=== PATIENT | female | born 1945 | race Caucasian/White ===

== ENCOUNTER 2018-03-14 09:46 | Emergency (ER) | payer MEDICARE, BC ==
--- NOTE | 2018-03-14 10:28 | EDM.PDOC ---
ED HPI GENERAL MEDICAL PROBLEM - General Stated Complaint: TROUBLE SWALLOWING, Time Seen by Provider: 03/14/18 10:20 Source of Information: Reports: Patient History Limitations: Reports: No Limitations - History of Present Illness INITIAL COMMENTS - FREE TEXT/NARRATIVE: This 73 yo female patient reports to the ED today due to difficulties swallowing. The patient reports her symptoms started this morning while she was eating a role. The patient ended up throwing up the bite prior to symptom resolution. The patient reports she is currently on Doxycycline and a Medrol Dose Pack due to bronchitis (the patient has 1 pill left for tonight and 1 pill for tomorrow morning. The patient reports no sensation of swelling of her tongue or mouth. The patient denies any rash. The patient reports she has not had a similar problem in the past. Onset: Today Duration: Minutes: Location: Reports: Neck Quality: Reports: Other Severity: Moderate Improves with: Reports: None Worsens with: Reports: None Associated Symptoms: Reports: No Other Symptoms - Related Data Allergies Allergy/AdvReac Type Severity Reaction Status Date / Time atorvastatin calcium Allergy Leg Cramps Verified 12/21/16 17:14 [From Lipitor] losartan [Losartan] Allergy Cannot Verified 12/21/16 17:14 Remember penicillin Allergy Swelling Verified 12/21/16 17:14 Home Meds: Home Meds Albuterol/Ipratropium [Combivent Respimat] 1 puff IH QID 06/07/15 [History] Brinzolamide [Azopt 1% Ophth Susp] 1 drop EYEBOTH BID 06/07/15 [History] Diazepam 5 mg PO BEDTIME 06/07/15 [History] Latanoprost 1 drop EYEBOTH BEDTIME 06/07/15 [History] Levothyroxine 25 mcg PO DAILY 06/07/15 [History] Levothyroxine 200 mcg PO DAILY 06/07/15 [History] OXcarbazepine [Oxcarbazepine] 600 mg PO BID 06/07/15 [History] QUEtiapine Fumarate [Quetiapine Fumarate] 200 mg PO BEDTIME 06/07/15 [History] Simvastatin 80 mg PO BEDTIME 06/07/15 [History] Trifluoperazine 5 mg PO BEDTIME 06/07/15 [History] Pyridostigmine [place] 30 mg PO Q8H 12/04/16 [History] Budesonide [Pulmicort] 0.5 mg NEB BIDRT 12/05/16 [History] Formoterol [Perforomist] 20 mcg NEB BIDRT 12/05/16 [History] Citalopram Hydrobromide [Celexa] 10 mg PO BEDTIME 12/14/16 [History] Loratadine [Claritin] 5 mg PO DAILY PRN 12/14/16 [History] Multivitamin [Daily Multiple Vitamin] 1 tab PO DAILY 12/14/16 [History] amLODIPine [Norvasc] 10 mg PO DAILY 12/14/16 [History] Aspirin [Halfprin] 81 mg PO DAILY 12/17/16 [History] Past Medical History Other HEENT History: wears glasses, has hearing aides Cardiovascular History: Reports: High Cholesterol, Hypertension Respiratory History: Reports: COPD Gastrointestinal History: Reports: GI Bleed, Other (See Below) Other Gastrointestinal History: dark stools Other Genitourinary History: has frequency 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 Musculoskeletal History: Reports: Arthritis Neurological History: Reports: Other (See Below) Other Neuro History: myasthenia gravis Psychiatric History: Reports: Anxiety, Bipolar, Depression Endocrine/Metabolic History: Reports: Hypothyroidism Hematologic History: Reports: None Immunologic History: Reports: None Oncologic (Cancer) History: Reports: None Dermatologic History: Reports: None - Infectious Disease History Infectious Disease History: Reports: Chicken Pox, Measles, Mumps, Shingles Social & Family History - Family History Family Medical History: Noncontributory - Tobacco Use Smoking Status *Q: Former Smoker Years of Tobacco use: 35 Packs/Tins Daily: 1 Used Tobacco, but Quit: Yes Month/Year Tobacco Last Used: 1998 Second Hand Smoke Exposure: No - Caffeine Use Caffeine Use: Reports: Coffee - Recreational Drug Use Recreational Drug Use: No - Living Situation & Occupation Living situation: Reports: Alone Occupation: Retired ED ROS ENT - Review of Systems Review Of Systems: ROS reveals no pertinent complaints other than HPI. ED EXAM, ENT - Physical Exam Exam: See Below General Appearance: Alert, WD/WN, Mild Distress Eye Exam: Bilateral Eye: EOMI, Normal Inspection, PERRL Ears: Normal External Exam, Normal Canal, Hearing Grossly Normal, Normal TMs Nose: Normal Inspection, Normal Mucousa, No Blood Mouth/Throat: Normal Gums, Normal Lips, Normal Teeth, Pharyngeal Erythema Head: Atraumatic, Normocephalic Neck: Normal Inspection, Supple, Non-Tender, Full Range of Motion Respiratory/Chest: No Respiratory Distress, Lungs Clear, Normal Breath Sounds, No Accessory Muscle Use, Chest Non-Tender Cardiovascular: Normal Peripheral Pulses, Regular Rate, Rhythm, No Edema, No Gallop, No JVD, No Murmur, No Rub GI/Abdominal: Normal Bowel Sounds, Soft, Non-Tender, No Organomegaly, No Distention, No Abnormal Bruit, No Mass (Female) Exam: Deferred Rectal (Female) Exam: Deferred Back: Normal Inspection, Full Range of Motion Extremities: Normal Inspection, Normal Range of Motion, Non-Tender, No Pedal Edema, Normal Capillary Refill Neurological: Alert, Oriented, CN II-XII Intact, Normal Cognition, Normal Gait, Normal Reflexes, No Motor/Sensory Deficits Psychiatric: Normal Affect, Normal Mood Skin: Warm, Dry, Intact, Normal Color, No Rash Lymphatic: No Adenopathy Course - Orders/Labs/Meds Orders: Active Orders 24 hr Category Date Time Status CULTURE STREP A CONFIRMATION [RM] Stat Lab 03/14/18 10:52 Results STREP SCRN A RAPID W CULT CONF [] Stat Lab 03/14/18 10:20 Ordered Departure - Departure Time of Disposition: 11:13 Disposition: Home, Self-Care 01 Condition: Fair Clinical Impression: Difficulty swallowing Qualifiers: Dysphagia type: oropharyngeal phase Qualified Code(s): R13.12 - Dysphagia, oropharyngeal phase - Discharge Information Instructions: Dysphagia Care Plan Goals: The patient was advised of the examination and lab results during the visit. The patient was encouraged to stop taking the prednisone. If the patient has any additional symptoms or concerns, the patient should follow-up with her primary care facility or return to the emergency department. - My Orders Last 24 Hours: My Active Orders 03/14/18 10:20 STREP SCRN A RAPID W CULT CONF [RM] Stat 03/14/18 10:52 CULTURE STREP A CONFIRMATION [] Stat - Assessment/Plan Last 24 Hours: My Active Orders 03/14/18 10:20 STREP SCRN A RAPID W CULT CONF [RM] Stat 03/14/18 10:52 CULTURE STREP A CONFIRMATION [] Stat
[2018-03-14 12:06] VITALS: BP 179/78
== END 2018-03-14 11:29 | disposition home or self-care (01) ==
LOC: DL.ED 09:46 → EEVIPCON 09:46 → DL.ED 11:29
DX: R13.12 Dysphagia, oropharyngeal phase (principal); I10 Essential (primary) hypertension; J44.9 Chronic obstructive pulmonary disease, unspecified; E03.9 Hypothyroidism, unspecified; Z88.8 Allergy status to other drugs, medicaments and biological substances; Z88.0 Allergy status to penicillin; Z79.899 Other long term (current) drug therapy; Z87.891 Personal history of nicotine dependence
CPT/HCPCS: 87081; 87430; 99283

== ENCOUNTER 2018-03-15 20:21 | Emergency (ER) | payer MEDICARE, BC ==
[2018-03-15 22:30] LABS: CHLORIDE,CL 94 mmol/L (101-111); SODIUM,NA 135 mmol/L (135-145)
[2018-03-15] MEDS ORDERED: Albuterol/Ipratropium 3.0-0.5 MG/3 ML Neb Soln NEB ONE (22:40)
--- NOTE | 2018-03-15 22:41 | EDM.PDOC ---
ED HPI GENERAL MEDICAL PROBLEM - General Chief Complaint: Respiratory Problem Stated Complaint: [id number] TROUBLE BREATHING Time Seen by Provider: 03/15/18 20:30 Source of Information: Reports: Patient, Family History Limitations: Reports: No Limitations - History of Present Illness INITIAL COMMENTS - FREE TEXT/NARRATIVE: ED with c/o of difficulty breathing, felt more SOB and unable to do nebulizer as usual. Has hx or recent bronchitis, is on last day of Doxycycline. Was seen in ED after choking on roll. Hx of myasthenia gravis. Productive cough at times. Family note sppech thicker past 2 weeks. Patient admits increasing difficulty swallowing and more episodes of choking. Has had thickened liquids in past though currently not thickening. - Related Data Allergies Allergy/AdvReac Type Severity Reaction Status Date / Time atorvastatin calcium Allergy Leg Cramps Verified 03/15/18 20:28 [From Lipitor] losartan [Losartan] Allergy Cannot Verified 03/15/18 20:28 Remember penicillin Allergy Swelling Verified 03/15/18 20:28 Home Meds: Home Meds Albuterol/Ipratropium [Combivent Respimat] 1 puff IH QID 06/07/15 [History] Brinzolamide [Azopt 1% Ophth Susp] 1 drop EYEBOTH BID 06/07/15 [History] Diazepam 5 mg PO BEDTIME 06/07/15 [History] Latanoprost 1 drop EYEBOTH BEDTIME 06/07/15 [History] Levothyroxine 200 mcg PO DAILY 06/07/15 [History] OXcarbazepine [Oxcarbazepine] 600 mg PO BID 06/07/15 [History] QUEtiapine Fumarate [Quetiapine Fumarate] 200 mg PO BEDTIME 06/07/15 [History] Simvastatin 80 mg PO BEDTIME 06/07/15 [History] Trifluoperazine 5 mg PO BEDTIME 06/07/15 [History] Pyridostigmine [place] 30 mg PO Q8H 12/04/16 [History] Budesonide [Pulmicort] 0.5 mg NEB BIDRT 12/05/16 [History] Formoterol [Perforomist] 20 mcg NEB BIDRT 12/05/16 [History] Citalopram Hydrobromide [Celexa] 10 mg PO BEDTIME 12/14/16 [History] Loratadine [Claritin] 5 mg PO DAILY PRN 12/14/16 [History] Multivitamin [Daily Multiple Vitamin] 1 tab PO DAILY 12/14/16 [History] amLODIPine [Norvasc] 10 mg PO DAILY 12/14/16 [History] Aspirin [Halfprin] 81 mg PO DAILY 12/17/16 [History] Brimonidine [Alphagan 0.2% Ophth Soln] 1 drop EYEBOTH BID 03/14/18 [History] methylPREDNISolone [Methylprednisolone] 1 tab PO ASDIRECTED 03/14/18 [History] Past Medical History HEENT History: Reports: Other (See Below) Other HEENT History: wears glasses, has hearing aides Cardiovascular History: Reports: High Cholesterol, Hypertension Respiratory History: Reports: COPD Other Respiratory History: Myasthenia Gravis Gastrointestinal History: Reports: GI Bleed, Other (See Below) Other Gastrointestinal History: dark stools Genitourinary History: Reports: Other (See Below) Other Genitourinary History: has frequency 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 Musculoskeletal History: Reports: Arthritis Neurological History: Reports: Other (See Below) Other Neuro History: myasthenia gravis Psychiatric History: Reports: Anxiety, Bipolar, Depression Endocrine/Metabolic History: Reports: Hypothyroidism Hematologic History: Reports: None Immunologic History: Reports: None Oncologic (Cancer) History: Reports: None Dermatologic History: Reports: None - Infectious Disease History Infectious Disease History: Reports: Chicken Pox, Measles, Mumps, Shingles Social & Family History - Family History Family Medical History: Noncontributory - Tobacco Use Smoking Status *Q: Never Smoker Years of Tobacco use: 35 Packs/Tins Daily: 1 Used Tobacco, but Quit: Yes Month/Year Tobacco Last Used: 1998 Second Hand Smoke Exposure: No - Caffeine Use Caffeine Use: Reports: Coffee - Recreational Drug Use Recreational Drug Use: No - Living Situation & Occupation Living situation: Reports: Alone Occupation: Retired ED ROS GENERAL - Review of Systems Review Of Systems: See Below Constitutional: Reports: Chills, Weakness HEENT: Reports: Glasses Respiratory: Reports: Shortness of Breath, Wheezing, Cough, Sputum (thick white/ yellow) Cardiovascular: Reports: No Symptoms GI/Abdominal: Reports: No Symptoms : Reports: No Symptoms Musculoskeletal: Reports: Other Skin: Reports: No Symptoms Neurological: Reports: No Symptoms, Pre-Existing Deficit ED EXAM, GENERAL - Physical Exam Exam: See Below Exam Limited By: No Limitations General Appearance: Alert, Anxious, Mild Distress Eye Exam: Bilateral Eye: EOMI Ears: Normal External Exam, Normal TMs Nose: Normal Inspection Throat/Mouth: Dysphagia, Other (thick white coating to tongue) Head: Atraumatic, Normocephalic Neck: Normal Inspection. No: Lymphadenopathy (L) Respiratory/Chest: No Respiratory Distress, Rhonchi (bilateral bases), Wheezing , Other (productive cough thick white/yellow phlegm) Cardiovascular: Normal Peripheral Pulses, Regular Rate, Rhythm GI/Abdominal: Normal Bowel Sounds, Soft Extremities: Normal Inspection, Normal Range of Motion Neurological: Alert, Oriented, Normal Cognition. No: Normal Gait (with supervision) Psychiatric: Normal Affect Skin Exam: Warm, Dry, Intact, Ecchymosis Course - Vital Signs Last Recorded V/S: Last Vital Signs Temp 100.4 F 03/15/18 23:21 Pulse 96 03/15/18 23:21 Resp 32 H 03/15/18 23:21 BP 177/83 H 03/15/18 23:21 Pulse Ox 98 03/15/18 23:21 - Orders/Labs/Meds Labs: Laboratory Tests 03/15/18 03/15/18 03/15/18 Range/Units 22:03 22:03 22:03 WBC 16.8 H (5.0-10.0) 10^3/uL RBC 4.62 (4.2-5.4) 10^6/uL Hgb 14.4 D (12.0-16.0) g/dL Hct 44.9 (37.0-47.0) % MCV 97.2 (80-100) fL MCH 31.2 (27.0-34.0) pg MCHC 32.1 L (33.0-35.0) g/dL Plt Count 254 D (150-450) 10^3/uL Neut % (Auto) 87.5 H (42.2-75.2) % Lymph % (Auto) 5.1 L (20.5-50.1) % [place] % (Auto) 7.2 (2-8) % Eos % (Auto) 0.1 L (1.0-3.0) % Baso % (Auto) 0.1 (0.0-1.0) % Sodium 135 (135-145) mmol/L Potassium 4.3 (3.6-5.0) mmol/L Chloride 94 L (101-111) mmol/L Carbon Dioxide 32.0 H (21.0-31.0) mmol/L Anion Gap 13.3 BUN 16 (7-18) mg/dL Creatinine 0.6 (0.6-1.3) mg/dL Est Cr Clr Drug Dosing 77.01 mL/min Estimated GFR (MDRD) > 60 BUN/Creatinine Ratio 26.66 Glucose 124 H (74-105) mg/dL Lactic Acid 1.2 (0.5-2.2) mmol/L Calcium 9.5 (8.4-10.2) mg/dl Magnesium 1.6 L (1.8-2.5) mg/dL Total Bilirubin 0.5 (0.2-1.0) mg/dL AST 29 (10-42) IU/L ALT 28 (10-60) IU/L Alkaline Phosphatase 83 (42-121) IU/L Troponin I < 0.02 (0.00-0.02) ng/ml Total Protein 7.5 (6.7-8.2) g/dl Albumin 4.3 (3.2-5.5) g/dl Globulin 3.2 Albumin/Globulin Ratio 1.34 Urine Color (YELLOW) Urine Appearance (CLEAR) Urine pH (5.0-9.0) Ur Specific [place] (1.005-1.030) Urine Protein (NEGATIVE) Urine Glucose (UA) (NEGATIVE) Urine Ketones (NEGATIVE) Urine Occult Blood (NEGATIVE) Urine Nitrite (NEGATIVE) Urine Bilirubin (NEGATIVE) Urine Urobilinogen (0.2-1.0) mg/dL Ur Leukocyte Esterase (NEGATIVE) Urine RBC /HPF Urine WBC (0-5/HPF) /HPF Ur Epithelial Cells /HPF Amorphous Sediment (0/HPF) /HPF Urine Bacteria (0-FEW/HPF) /HPF 03/15/18 Range/Units 22:43 WBC (5.0-10.0) 10^3/uL RBC (4.2-5.4) 10^6/uL Hgb (12.0-16.0) g/dL Hct (37.0-47.0) % MCV (80-100) fL MCH (27.0-34.0) pg MCHC (33.0-35.0) g/dL Plt Count (150-450) 10^3/uL Neut % (Auto) (42.2-75.2) % Lymph % (Auto) (20.5-50.1) % [place] % (Auto) (2-8) % Eos % (Auto) (1.0-3.0) % Baso % (Auto) (0.0-1.0) % Sodium (135-145) mmol/L Potassium (3.6-5.0) mmol/L Chloride (101-111) mmol/L Carbon Dioxide (21.0-31.0) mmol/L Anion Gap BUN (7-18) mg/dL Creatinine (0.6-1.3) mg/dL Est Cr Clr Drug Dosing mL/min Estimated GFR (MDRD) BUN/Creatinine Ratio Glucose (74-105) mg/dL Lactic Acid (0.5-2.2) mmol/L Calcium (8.4-10.2) mg/dl Magnesium (1.8-2.5) mg/dL Total Bilirubin (0.2-1.0) mg/dL AST (10-42) IU/L ALT (10-60) IU/L Alkaline Phosphatase (42-121) IU/L Troponin I (0.00-0.02) ng/ml Total Protein (6.7-8.2) g/dl Albumin (3.2-5.5) g/dl Globulin Albumin/Globulin Ratio Urine Color Yellow (YELLOW) Urine Appearance Slightly cloudy (CLEAR) Urine pH 8.5 (5.0-9.0) Ur Specific [place] 1.020 (1.005-1.030) Urine Protein 30 H (NEGATIVE) Urine Glucose (UA) Negative (NEGATIVE) Urine Ketones Negative (NEGATIVE) Urine Occult Blood Negative (NEGATIVE) Urine Nitrite Negative (NEGATIVE) Urine Bilirubin Negative (NEGATIVE) Urine Urobilinogen 1.0 (0.2-1.0) mg/dL Ur Leukocyte Esterase Negative (NEGATIVE) Urine RBC 0-5 /HPF Urine WBC 0-5 (0-5/HPF) /HPF Ur Epithelial Cells Rare /HPF Amorphous Sediment Few (0/HPF) /HPF Urine Bacteria Few (0-FEW/HPF) /HPF Meds: Medications Discontinued Medications Generic Name Dose Route Start Last Admin Trade Name Freq PRN Reason Stop Dose Admin Albuterol/Ipratropium 3 ml 03/15/18 22:40 03/15/18 22:48 Duoneb 3.0-0.5 Mg/3 Ml NEB 03/15/18 22:41 3 ml ONETIME ONE Administration Aztreonam 1 gm 03/15/18 23:36 03/15/18 23:47 Azactam IVPUSH 03/15/18 23:37 1 gm ONETIME ONE Administration - Re-Assessments/Exams Free Text/Narrative Re-Assessment/Exam: 03/15/18 23:37 Aspiration pneumonia, hx myesthenia gravis, limiting antibiotic choice. Has received azactam in past and tolerated. 03/15/18 23:39Dr Sylvester accepting of patient in tx to alt 03/18/18 21:45 Departure - Departure Time of Disposition: 23:55 Disposition: DC/Tfer to Acute Hospital 02 Condition: Fair Clinical Impression: Myasthenia gravis RML pneumonia Qualifiers: Pneumonia type: aspiration pneumonia Aspiration pneumonia type: unspecified Qualified Code(s): J69.0 - Pneumonitis due to inhalation of food and vomit COPD (chronic obstructive pulmonary disease) Qualifiers: COPD type: unspecified COPD Qualified Code(s): J44.9 - Chronic obstructive pulmonary disease, unspecified - Discharge Information Referrals: PCP,Unobtain [Primary Care Provider] - Forms: ED Department Discharge
[2018-03-15 23:22] VITALS: BP 177/83
== END 2018-03-15 23:59 ==
LOC: DL.ED 20:21
DX: J69.0 Pneumonitis due to inhalation of food and vomit (principal); J44.9 Chronic obstructive pulmonary disease, unspecified; G70.00 Myasthenia gravis without (acute) exacerbation; E78.00 Pure hypercholesterolemia, unspecified; I10 Essential (primary) hypertension; E03.9 Hypothyroidism, unspecified; Z88.8 Allergy status to other drugs, medicaments and biological substances; Z88.0 Allergy status to penicillin; Z79.899 Other long term (current) drug therapy; Z79.82 Long term (current) use of aspirin; Z87.891 Personal history of nicotine dependence
CPT/HCPCS: 36415; 71046; 80053; 81001; 83605; 83735; 84484; 85025; 87040; 87070; 87077; 87186; 87205; 96374; 99285; S0073

== ENCOUNTER 2018-03-21 12:38 | Inpatient (IN) | payer MEDICARE, BC ==
[2018-03-21] MEDS ORDERED: Docusate Sodium 100 MG Cap PO PRN (15:35)
[2018-03-21] MEDS ORDERED: Calcium Carbonate 500 MG Tab.Chew PO PRN (15:35)
[2018-03-21] MEDS ORDERED: guaiFENesin 100 MG/5 ML Soln 5 ML UD Cup PO PRN (15:35)
[2018-03-21] MEDS ORDERED: Ondansetron 4 MG/2 ML SDV IVPUSH PRN (15:35)
[2018-03-21] MEDS ORDERED: Aluminum Hydroxide/Magnesium Hydroxide/Simethicone Susp 30 ML Cup PO PRN (15:35)
[2018-03-21] MEDS ORDERED: Bisacodyl 5 MG Tab PO PRN (15:35)
[2018-03-21] MEDS ORDERED: IPRATROPIUM INH PRN (15:43)
[2018-03-21] MEDS ORDERED: Loratadine 10 MG Tab PO PRN (15:43)
[2018-03-21] MEDS ORDERED: ALBUTEROL INH PRN (15:43)
--- NOTE | 2018-03-21 15:56 | PCM.HP ---
H&P History of Present Illness - General Date of Service: 03/21/18 Admit Problem/Dx: Admission Diagnosis/Problem Admission Diagnosis/Problem Pneumonia Source of Information: Patient History Limitations: Reports: No Limitations - History of Present Illness Onset of Symptoms: Reports: Unknown/Unsure Duration of Symptoms: Reports: Week(s): Location: Reports: Generalized Quality: Reports: Ache Severity: Mild Improves with: Reports: Rest Worsens with: Reports: Movement Context: Reports: Activity/Exercise Associated Symptoms: Reports: Cough, Shortness of Breath - Related Data Allergies/Adverse Reactions: Allergies Allergy/AdvReac Type Severity Reaction Status Date / Time atorvastatin calcium Allergy Leg Cramps Verified 03/21/18 13:50 [From Lipitor] losartan [Losartan] Allergy Cannot Verified 03/21/18 13:50 Remember penicillin Allergy Swelling Verified 03/21/18 13:50 Home Medications: Home Meds Albuterol/Ipratropium [Combivent Respimat] 1 puff IH QID PRN 06/07/15 [History] Brinzolamide [Azopt 1% Ophth Susp] 1 drop EYEBOTH BID 06/07/15 [History] Diazepam 5 mg PO BEDTIME 06/07/15 [History] Latanoprost 1 drop EYEBOTH BEDTIME 06/07/15 [History] Levothyroxine 200 mcg PO DAILY 06/07/15 [History] OXcarbazepine [Oxcarbazepine] 600 mg PO BID 06/07/15 [History] QUEtiapine Fumarate [Quetiapine Fumarate] 200 mg PO BEDTIME 06/07/15 [History] Simvastatin 80 mg PO BEDTIME 06/07/15 [History] Trifluoperazine 5 mg PO BEDTIME 06/07/15 [History] Pyridostigmine [place] 90 mg PO TID 12/04/16 [History] Budesonide [Pulmicort] 0.5 mg NEB BIDRT 12/05/16 [History] Formoterol [Perforomist] 20 mcg NEB BIDRT 12/05/16 [History] Citalopram Hydrobromide [Celexa] 10 mg PO BEDTIME 12/14/16 [History] Loratadine [Claritin] 5 mg PO DAILY PRN 12/14/16 [History] Multivitamin [Daily Multiple Vitamin] 1 tab PO DAILY 12/14/16 [History] amLODIPine [Norvasc] 10 mg PO DAILY 12/14/16 [History] Aspirin [Halfprin] 81 mg PO DAILY 12/17/16 [History] Brimonidine [Alphagan 0.2% Ophth Soln] 1 drop EYEBOTH BID 03/14/18 [History] Diazepam [Valium] 2.5 mg PO BID 03/21/18 [History] Omeprazole 20 mg PO DAILY 03/21/18 [History] Prednisone [IJD: Prednisone] 10 mg PO DAILY 03/21/18 [History] Past Medical History HEENT History: Reports: Other (See Below) Other HEENT History: wears glasses, has hearing aides Cardiovascular History: Reports: High Cholesterol, Hypertension Respiratory History: Reports: COPD Other Respiratory History: Myasthenia Gravis Gastrointestinal History: Reports: GERD, GI Bleed, Other (See Below) Other Gastrointestinal History: dark stools Genitourinary History: Reports: Other (See Below) Other Genitourinary History: has frequency 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: Musculoskeletal History: Reports: Arthritis Neurological History: Reports: None Other Neuro History: myasthenia gravis Psychiatric History: Reports: Anxiety, Bipolar, Depression Endocrine/Metabolic History: Reports: Hypothyroidism, Other (See Below) Other Endocrine/Metabolic History: myasthenia gravis Hematologic History: Reports: None Immunologic History: Reports: None Oncologic (Cancer) History: Reports: None Dermatologic History: Reports: None - Infectious Disease History Infectious Disease History: Reports: Shingles - Past Surgical History HEENT Surgical History: Reports: None Cardiovascular Surgical History: Reports: None Respiratory Surgical History: Reports: None GI Surgical History: Reports: None Female Surgical History: Reports: Tubal Ligation Endocrine Surgical History: Reports: None Neurological Surgical History: Reports: None Musculoskeletal Surgical History: Reports: None Oncologic Surgical History: Reports: None Dermatological Surgical History: Reports: None Social & Family History - Family History Family Medical History: Noncontributory - Tobacco Use Smoking Status *Q: Former Smoker Years of Tobacco use: 30 Packs/Tins Daily: 1 Used Tobacco, but Quit: Yes Month/Year Tobacco Last Used: 12/16/1998 Second Hand Smoke Exposure: No - Caffeine Use Caffeine Use: Reports: None - Recreational Drug Use Recreational Drug Use: No - Living Situation & Occupation Living situation: Reports: Alone Occupation: Retired H&P Review of Systems - Review of Systems: Review Of Systems: See Below General: Reports: No Symptoms HEENT: Reports: No Symptoms Pulmonary: Reports: Shortness of Breath, Cough Cardiovascular: Reports: No Symptoms Gastrointestinal: Reports: No Symptoms Genitourinary: Reports: No Symptoms Musculoskeletal: Reports: No Symptoms Skin: Reports: No Symptoms Psychiatric: Reports: No Symptoms Neurological: Reports: No Symptoms Hematologic/Lymphatic: Reports: No Symptoms Immunologic: Reports: No Symptoms Exam - Exam Exam: See Below - Vital Signs Weight: 161 lb - Exam Quality Assessment: Supplemental Oxygen, DVT Prophylaxis General: Alert, Oriented, Cooperative, Mild Distress HEENT: PERRLA, Hearing Intact, Mucosa Moist & [place], Nares Patent, Normal Nasal Septum, Posterior Pharynx Clear, Conjunctiva Clear, EOMI, EACs Clear, TMs Clear Neck: Supple, Trachea Midline, 2 Lungs: Clear to Auscultation, Normal Respiratory Effort Cardiovascular: Regular Rate, Regular Rhythm GI/Abdominal Exam: Normal Bowel Sounds, Soft, Non-Tender, No Organomegaly, No Distention, No Abnormal Bruit, No Mass, Pelvis Stable (Female) Exam: Normal External Exam, Normal Speculum Exam, Normal Bimanual Exam Rectal (Female) Exam: Deferred Back Exam: Normal Inspection, Full Range of Motion Extremities: Pedal Edema Skin: Warm Neurological: Cranial Nerves Intact, Reflexes Equal Bilateral Neuro Extensive - Mental Status: Alert, Oriented x3, Normal Mood/Affect, Normal Cognition Neuro Extensive - Motor, Sensory, Reflexes: CN II-XII Intact, Normal Gait, Normal Reflexes Psychiatric: Alert - Problem List (1) Acute respiratory failure SNOMED Code(s): 22289451 ICD Code: J96.00 - ACUTE RESPIRATORY FAILURE, UNSP W HYPOXIA OR HYPERCAPNIA Status: Acute Current Visit: No (2) COPD (chronic obstructive pulmonary disease) SNOMED Code(s): 66337462 ICD Code: J44.9 - CHRONIC OBSTRUCTIVE PULMONARY DISEASE, UNSPECIFIED Status : Acute Current Visit: No (3) Myasthenia gravis SNOMED Code(s): 07522067 ICD Code: G70.00 - MYASTHENIA GRAVIS WITHOUT (ACUTE) EXACERBATION Status: Acute Current Visit: No (4) Pneumonia SNOMED Code(s): 000375066 ICD Code: J18.9 - PNEUMONIA, UNSPECIFIED ORGANISM Status: Acute Current Visit: No Qualifiers: (5) RML pneumonia SNOMED Code(s): 369704627 ICD Code: J18.1 - LOBAR PNEUMONIA, UNSPECIFIED ORGANISM Status: Acute Current Visit: No Problem List Initiated/Reviewed/Updated: Yes Orders Last 24hrs: Active Orders 24 hr Category Date Time Status Patient Status [ADT] Routine ADT 03/21/18 15:35 Ordered Ambulate [RC] PER UNIT ROUTINE Care 03/21/18 15:38 Ordered Dietary Supplements [RC] BIDAC Care 03/21/18 15:35 Ordered Intake and Output [RC] ASDIRECTED Care 03/21/18 15:35 Ordered Oxygen Therapy [RC] PRN Care 03/21/18 15:35 Ordered Up With Assistance [RC] ASDIRECTED Care 03/21/18 15:35 Ordered VTE/DVT Education [RC] PER UNIT ROUTINE Care 03/21/18 15:35 Ordered Vital Signs [RC] PER UNIT ROUTINE Care 03/21/18 15:35 Ordered Acetaminophen [Tylenol] Med 03/21/18 15:35 Ordered 650 mg PO Q4H PRN Albuterol/Ipratropium [Combivent Respimat] Med 03/21/18 15:43 Ordered 1 puff IH QID PRN Alum Hydrox/Mag Hydrox/Simeth [Mag-Al Plus] Med 03/21/18 15:35 Ordered 30 ml PO Q4H PRN Aspirin [Halfprin] Med 03/22/18 09:00 Ordered 81 mg PO DAILY Bisacodyl [Dulcolax] Med 03/21/18 15:35 Ordered 5 mg PO DAILY PRN Brimonidine [Alphagan 0.2% Ophth Soln] Med 03/21/18 21:00 Ordered 1 drop EYEBOTH BID Brinzolamide [Azopt 1% Ophth Susp] Med 03/21/18 21:00 Ordered 1 drop EYEBOTH BID Budesonide [Pulmicort] Med 03/21/18 18:00 Ordered 0.5 mg NEB BIDRT Calcium Carbonate [Tums] Med 03/21/18 15:35 Ordered 500 mg PO Q2HR PRN Citalopram Hydrobromide [Celexa] Med 03/21/18 21:00 Ordered 10 mg PO BEDTIME Diazepam [Valium] Med 03/21/18 21:00 Ordered 5 mg PO BEDTIME Docusate Sodium [Colace] Med 03/21/18 15:35 Ordered 100 mg PO BID PRN Formoterol [Perforomist] Med 03/21/18 18:00 Ordered 20 mcg NEB BIDRT Heparin Sodium Med 03/21/18 15:45 Ordered 5,000 units SUBCUT Q12H Latanoprost [Xalatan 0.005% Ophth Soln] Med 03/21/18 21:00 Ordered 1 drop EYEBOTH BEDTIME Levothyroxine Med 03/22/18 09:00 Ordered 200 mcg PO DAILY Loratadine [Claritin] Med 03/21/18 15:43 Ordered 5 mg PO DAILY PRN Meropenem [Merrem] 500 mg Med 03/21/18 22:00 Ordered Sodium Chloride 0.9% [Normal Saline] 100 ml IV Q8HR Multivitamin [Daily Multiple Vitamin] Med 03/22/18 09:00 Ordered 1 tab PO DAILY OXcarbazepine [Oxcarbazepine] Med 03/21/18 21:00 Ordered 600 mg PO BID Omeprazole Med 03/22/18 09:00 Ordered 20 mg PO DAILY Ondansetron [Zofran ODT] Med 03/21/18 15:35 Ordered 4 mg PO Q4H PRN Ondansetron [Zofran] Med 03/21/18 15:35 Ordered 4 mg IVPUSH Q4H PRN Pyridostigmine [place] Med 03/21/18 21:00 Ordered 90 mg PO TID QUEtiapine Fumarate [Quetiapine Fumarate] Med 03/21/18 21:00 Ordered 200 mg PO BEDTIME Simvastatin [Simvastatin] Med 03/21/18 21:00 Ordered 80 mg PO BEDTIME Trifluoperazine Med 03/21/18 21:00 Ordered 5 mg PO BEDTIME amLODIPine [Norvasc] Med 03/22/18 09:00 Ordered 10 mg PO DAILY guaiFENesin [Robitussin] Med 03/21/18 15:35 Ordered 100 mg PO Q4H PRN predniSONE Med 03/22/18 09:00 Ordered 10 mg PO DAILY Antiembolic Hose [OM.PC] Per Unit Routine Oth 03/21/18 15:39 Ordered Resuscitation Status Routine Resus Stat 03/21/18 15:35 Ordered Medication Orders Acetaminophen (Tylenol) 650 mg PO Q4H PRN PRN Reason: Pain (Mild 1-3)/fever Al Hydroxide/Mg Hydroxide (Mag-Al Plus) 30 ml PO Q4H PRN PRN Reason: Nausea Aspirin (Halfprin) 81 mg PO DAILY [facility] Bisacodyl (Dulcolax) 5 mg PO DAILY PRN PRN Reason: Constipation Brinzolamide (Azopt 1% Ophth Susp) ml EYEBOTH BID [facility] Budesonide (Pulmicort) 0.5 mg NEB BIDRT [facility] Calcium Carbonate/Glycine (Tums) 500 mg PO Q2HR PRN PRN Reason: Indigestion Diazepam (Valium.) 5 mg PO BEDTIME [facility] Docusate Sodium (Colace) 100 mg PO BID PRN PRN Reason: Constipation Guaifenesin (Robitussin) 100 mg PO Q4H PRN PRN Reason: Cough Heparin Sodium (Porcine) (Heparin Sodium) 5,000 units SUBCUT Q12H [facility] Meropenem 500 mg/ Sodium (Chloride) 100 mls @ 200 mls/hr IV Q8HR [facility] Latanoprost (Xalatan 0.005% Ophth Soln) ml EYEBOTH BEDTIME [facility] Non-Formulary Medication (Albuterol/Ipratropium [Combivent Respimat]) 1 puff IH QID PRN PRN Reason: Shortness of Breath Non-Formulary Medication (Amlodipine [Norvasc]) 10 mg PO DAILY [facility] Non-Formulary Medication (Brimonidine [Alphagan 0.2% Ophth Soln]) 1 drop EYEBOTH BID [facility] Non-Formulary Medication (Citalopram Hydrobromide [Celexa]) 10 mg PO BEDTIME [facility] Non-Formulary Medication (Formoterol [Perforomist]) 20 mcg NEB BIDRT [facility] Non-Formulary Medication (Levothyroxine) 200 mcg PO DAILY [facility] Non-Formulary Medication (Loratadine [Claritin]) 5 mg PO DAILY PRN PRN Reason: Allergies Non-Formulary Medication (Multivitamin [Daily Multiple Vitamin]) 1 tab PO DAILY [facility] Non-Formulary Medication (Oxcarbazepine [Oxcarbazepine]) 600 mg PO BID [facility] Non-Formulary Medication (Pyridostigmine [place]) 90 mg PO TID [facility] Non-Formulary Medication (Quetiapine Fumarate [Quetiapine Fumarate]) 200 mg PO BEDTIME [facility] Non-Formulary Medication (Simvastatin [Simvastatin]) 80 mg PO BEDTIME [place] Non-Formulary Medication (Trifluoperazine) 5 mg PO BEDTIME [facility] Omeprazole (Omeprazole) 20 mg PO DAILY [facility] Ondansetron HCl (Zofran Odt) 4 mg PO Q4H PRN PRN Reason: nausea, able to take PO Ondansetron HCl (Zofran) 4 mg IVPUSH Q4H PRN PRN Reason: Nausea/Vomiting Prednisone (Prednisone) 10 mg PO DAILY [facility] Assessment/Plan Comment:: ASSESSMENT: 1. Pneumonia. CXR showed gram-negative pneumonia. Sputum culture is growing [id number] and Pseudomonas Chest x-ray showed right lower lobe infiltrate. Will continue IV Meropenem to complete for 7 days 2. Myasthenia gravis with exacerbation On Mestinon 90 mg 3 times daily Continue prednisone 20 mg daily and gradually taper off Follows with Dr Washington 3. Possible chronic obstructive pulmonary disease (COPD) Continue home meds 4. Bipolar disorder, Continue current medication. 5. Hypertension. Fairly controlled continue current care 6. Hypothyroidism, on synthroid 8. Generalized anxiety disorder. Continue curent care 9.Chronic hypoxemic respiratory failure on home oxygen 2L with activity 10.Generalized weakness PT/OT
[2018-03-21] MEDS: Budesonide 0.5 MG/2 ML Neb Susp NEB SCH (18:43)
[2018-03-21] MEDS: FORMOTEROL 20 MCG NEB SCH (20:06)
[2018-03-21] MEDS: BRIMONIDINE 0.15% EYEBOTH SCH (20:43)
[2018-03-21] MEDS: Heparin Sodium 5,000 Units/ML Vial SUBCUT SCH (20:45)
[2018-03-21] MEDS: Citalopram 20 MG Tab PO SCH (20:45)
[2018-03-21] MEDS: PYRIDOSTIGMINE BROMIDE 60 MG PO SCH (20:46)
[2018-03-21] MEDS: TRIFLUOPERAZINE 5 MG PO SCH (20:47)
[2018-03-21] MEDS: OXcarbazepine 300 MG Tab PO SCH (20:48)
[2018-03-21] MEDS: Latanoprost 0.005% Ophth Soln 2.5 ML Bottle EYEBOTH SCH (20:49)
[2018-03-21] MEDS: Simvastatin 40 MG Tab PO SCH (20:50)
[2018-03-21] MEDS: QUEtiapine 100 MG Tab PO SCH (22:33)
[2018-03-21] MEDS: Diazepam 5 MG Tab PO SCH (22:33)
[2018-03-21] MEDS: Meropenem 500 MG in Sodium Chloride 0.9% 100 ML IV SCH (22:34)
[2018-03-22] MEDS: Meropenem 500 MG in Sodium Chloride 0.9% 100 ML IV SCH ×3 (05:50→21:35)
[2018-03-22] MEDS: Omeprazole 20 MG Cap.CR PO SCH (05:50)
[2018-03-22] MEDS: Budesonide 0.5 MG/2 ML Neb Susp NEB SCH ×2 (07:18→18:28)
[2018-03-22] MEDS: FORMOTEROL 20 MCG NEB SCH ×2 (07:18→18:25)
[2018-03-22] MEDS: OXcarbazepine 300 MG Tab PO SCH ×2 (08:35→20:53)
[2018-03-22] MEDS: amLODIPine 5 MG Tab PO SCH (08:35)
[2018-03-22] MEDS: predniSONE 10 MG Tab PO SCH (08:36)
[2018-03-22] MEDS: Multivitamins,Therapeutic Tab PO SCH (08:36)
[2018-03-22] MEDS: Levothyroxine 100 MCG Tab PO SCH (08:36)
[2018-03-22] MEDS: PYRIDOSTIGMINE BROMIDE 60 MG PO SCH ×3 (08:36→20:47)
[2018-03-22] MEDS: Aspirin 81 MG Tab.EC PO SCH (08:36)
[2018-03-22] MEDS: Heparin Sodium 5,000 Units/ML Vial SUBCUT SCH ×2 (08:36→20:51)
[2018-03-22] MEDS: BRIMONIDINE 0.15% EYEBOTH SCH ×2 (08:38→20:46)
[2018-03-22] MEDS: Acetaminophen 325 MG Tab PO PRN (10:34)
[2018-03-22] MEDS: Sodium Chloride 0.9% 10 ML Syringe FLUSH PRN (14:24)
[2018-03-22] MEDS: Latanoprost 0.005% Ophth Soln 2.5 ML Bottle EYEBOTH SCH (20:45)
[2018-03-22] MEDS: TRIFLUOPERAZINE 5 MG PO SCH (20:48)
[2018-03-22] MEDS: QUEtiapine 100 MG Tab PO SCH (20:52)
[2018-03-22] MEDS: Citalopram 20 MG Tab PO SCH (20:52)
[2018-03-22] MEDS: Diazepam 5 MG Tab PO SCH (20:53)
[2018-03-22] MEDS: Simvastatin 40 MG Tab PO SCH (20:53)
[2018-03-23] MEDS: Acetaminophen 325 MG Tab PO PRN (03:07)
[2018-03-23] MEDS: Omeprazole 20 MG Cap.CR PO SCH (05:18)
[2018-03-23] MEDS: Meropenem 500 MG in Sodium Chloride 0.9% 100 ML IV SCH ×3 (05:18→22:07)
[2018-03-23] MEDS: Budesonide 0.5 MG/2 ML Neb Susp NEB SCH ×2 (07:24→18:04)
[2018-03-23] MEDS: FORMOTEROL 20 MCG NEB SCH ×2 (07:25→18:05)
[2018-03-23] MEDS: predniSONE 10 MG Tab PO SCH (08:46)
[2018-03-23] MEDS: amLODIPine 5 MG Tab PO SCH (08:46)
[2018-03-23] MEDS: OXcarbazepine 300 MG Tab PO SCH ×2 (08:49→21:14)
[2018-03-23] MEDS: Aspirin 81 MG Tab.EC PO SCH (08:50)
[2018-03-23] MEDS: Heparin Sodium 5,000 Units/ML Vial SUBCUT SCH ×2 (08:50→21:09)
[2018-03-23] MEDS: Multivitamins,Therapeutic Tab PO SCH (08:50)
[2018-03-23] MEDS: PYRIDOSTIGMINE BROMIDE 60 MG PO SCH ×6 (08:52→17:34)
[2018-03-23] MEDS: BRIMONIDINE 0.15% EYEBOTH SCH ×2 (08:54→21:24)
[2018-03-23] MEDS: Levothyroxine 100 MCG Tab PO SCH (09:14)
[2018-03-23] MEDS: Sodium Chloride 0.9% 10 ML Syringe FLUSH PRN ×2 (14:20→22:09)
[2018-03-23] MEDS: QUEtiapine 100 MG Tab PO SCH (21:12)
[2018-03-23] MEDS: Simvastatin 40 MG Tab PO SCH (21:13)
[2018-03-23] MEDS: Diazepam 5 MG Tab PO SCH (21:14)
[2018-03-23] MEDS: TRIFLUOPERAZINE 5 MG PO SCH (21:15)
[2018-03-23] MEDS: Citalopram 20 MG Tab PO SCH (21:18)
[2018-03-23] MEDS: Latanoprost 0.005% Ophth Soln 2.5 ML Bottle EYEBOTH SCH (21:24)
[2018-03-24] MEDS: Meropenem 500 MG in Sodium Chloride 0.9% 100 ML IV SCH ×3 (05:57→21:30)
[2018-03-24] MEDS: Sodium Chloride 0.9% 10 ML Syringe FLUSH PRN ×2 (05:59→13:55)
[2018-03-24] MEDS: Omeprazole 20 MG Cap.CR PO SCH (06:00)
[2018-03-24] MEDS: PYRIDOSTIGMINE BROMIDE 60 MG PO SCH ×3 (06:01→17:02)
[2018-03-24] MEDS: Budesonide 0.5 MG/2 ML Neb Susp NEB SCH ×2 (07:46→17:35)
[2018-03-24] MEDS: FORMOTEROL 20 MCG NEB SCH ×2 (07:46→17:35)
[2018-03-24] MEDS: predniSONE 10 MG Tab PO SCH (09:23)
[2018-03-24] MEDS: amLODIPine 5 MG Tab PO SCH (09:24)
[2018-03-24] MEDS: Aspirin 81 MG Tab.EC PO SCH (09:24)
[2018-03-24] MEDS: Multivitamins,Therapeutic Tab PO SCH (09:24)
[2018-03-24] MEDS: OXcarbazepine 300 MG Tab PO SCH ×2 (09:24→21:31)
[2018-03-24] MEDS: Levothyroxine 100 MCG Tab PO SCH (09:24)
[2018-03-24] MEDS: Heparin Sodium 5,000 Units/ML Vial SUBCUT SCH ×2 (09:29→21:31)
[2018-03-24] MEDS: BRIMONIDINE 0.15% EYEBOTH SCH ×2 (09:30→21:26)
[2018-03-24] MEDS: Latanoprost 0.005% Ophth Soln 2.5 ML Bottle EYEBOTH SCH (21:27)
[2018-03-24] MEDS: TRIFLUOPERAZINE 5 MG PO SCH (21:29)
[2018-03-24] MEDS: Simvastatin 40 MG Tab PO SCH (21:30)
[2018-03-24] MEDS: Diazepam 5 MG Tab PO SCH (21:30)
[2018-03-24] MEDS: QUEtiapine 100 MG Tab PO SCH (21:30)
[2018-03-24] MEDS: Citalopram 20 MG Tab PO SCH (21:31)
[2018-03-25] MEDS: Meropenem 500 MG in Sodium Chloride 0.9% 100 ML IV SCH ×3 (06:03→21:06)
[2018-03-25] MEDS: Omeprazole 20 MG Cap.CR PO SCH (06:06)
[2018-03-25] MEDS: PYRIDOSTIGMINE BROMIDE 60 MG PO SCH ×3 (06:08→17:13)
[2018-03-25] MEDS: Budesonide 0.5 MG/2 ML Neb Susp NEB SCH ×2 (08:50→17:58)
[2018-03-25] MEDS: FORMOTEROL 20 MCG NEB SCH ×2 (08:50→17:58)
[2018-03-25] MEDS: Levothyroxine 100 MCG Tab PO SCH (09:13)
[2018-03-25] MEDS: OXcarbazepine 300 MG Tab PO SCH ×2 (09:14→21:04)
[2018-03-25] MEDS: Aspirin 81 MG Tab.EC PO SCH (09:14)
[2018-03-25] MEDS: predniSONE 10 MG Tab PO SCH (09:14)
[2018-03-25] MEDS: amLODIPine 5 MG Tab PO SCH (09:14)
[2018-03-25] MEDS: Multivitamins,Therapeutic Tab PO SCH (09:15)
[2018-03-25] MEDS: Heparin Sodium 5,000 Units/ML Vial SUBCUT SCH ×2 (09:16→21:06)
[2018-03-25] MEDS: BRIMONIDINE 0.15% EYEBOTH SCH ×2 (09:18→21:02)
[2018-03-25] MEDS: Ondansetron 4 MG Tab.DIS PO PRN ×2 (10:32→16:05)
[2018-03-25] MEDS: Latanoprost 0.005% Ophth Soln 2.5 ML Bottle EYEBOTH SCH (21:02)
[2018-03-25] MEDS: TRIFLUOPERAZINE 5 MG PO SCH (21:03)
[2018-03-25] MEDS: Acetaminophen 325 MG Tab PO PRN (21:04)
[2018-03-25] MEDS: Citalopram 20 MG Tab PO SCH (21:05)
[2018-03-25] MEDS: Simvastatin 40 MG Tab PO SCH (21:05)
[2018-03-25] MEDS: QUEtiapine 100 MG Tab PO SCH (21:05)
[2018-03-25] MEDS: Diazepam 5 MG Tab PO SCH (21:06)
[2018-03-26] MEDS: Meropenem 500 MG in Sodium Chloride 0.9% 100 ML IV SCH (06:00)
[2018-03-26] MEDS: PYRIDOSTIGMINE BROMIDE 60 MG PO SCH ×2 (06:01→11:25)
[2018-03-26] MEDS: Omeprazole 20 MG Cap.CR PO SCH (06:01)
[2018-03-26] MEDS: FORMOTEROL 20 MCG NEB SCH (07:10)
[2018-03-26] MEDS: Budesonide 0.5 MG/2 ML Neb Susp NEB SCH (07:11)
[2018-03-26 08:28] VITALS: BP 128/65
[2018-03-26] MEDS: Levothyroxine 100 MCG Tab PO SCH (08:49)
[2018-03-26] MEDS: amLODIPine 5 MG Tab PO SCH (08:49)
[2018-03-26] MEDS: OXcarbazepine 300 MG Tab PO SCH (08:50)
[2018-03-26] MEDS: Heparin Sodium 5,000 Units/ML Vial SUBCUT SCH (08:50)
[2018-03-26] MEDS: predniSONE 10 MG Tab PO SCH (08:50)
[2018-03-26] MEDS: Multivitamins,Therapeutic Tab PO SCH (08:50)
[2018-03-26] MEDS: Aspirin 81 MG Tab.EC PO SCH (08:50)
[2018-03-26] MEDS: BRIMONIDINE 0.15% EYEBOTH SCH (08:51)
[2018-03-26] MEDS ORDERED: methylPREDNISolone Sodium Succinate 40 MG/1 ML SDV IVPUSH ONE (10:48)
[2018-03-26 10:55] LABS: BASE EXCESS ARTERIAL 12 mmol/L ((-2)-(+3)); BICARBONATE,ARTERIAL 44.1 mmol/L (22-26); O2 DELIVERY DEVICE NASAL CANNULA; O2 SATURATION ARTERIAL 99 % (95-100); PO2 ARTERIAL 124 mmHg (70-100)
--- NOTE | 2018-03-26 10:55 | PCM.DCSUM1 ---
Discharge Summary - Hospital Course Free Text/Narrative:: 73-year-old lady who was transferred to [facility] for IV antibiotic therapy 1. Pneumonia. CXR showed gram-negative pneumonia. Sputum culture is growing [id number] and Pseudomonas Chest x-ray showed right lower lobe infiltrate. Plan was to continue IV Meropenem to complete for 7 days Last day of antibiotic was planned for 03/29/2018 2. Myasthenia gravis with exacerbation On Mestinon 90 mg 3 times daily prednisone was tapered to 10 mg daily and plan was to gradually taper off Follows with Dr Washington On the evening of 25 March the patient had developed decreased ability to interact. On the seventh of march she has uncontrollable twitching, unable to open eyes Dose of 80 mg IV steroid was given with concern about acute myesthenia exacerbation. Was transferred to [facility] for further evaluation 3. Possible chronic obstructive pulmonary disease (COPD) Continue home meds 4. Bipolar disorder, On multiple medications including Serevent, Trileptal, diazepam, Celexa, trifluoperazine. Continue current medication. 5. Hypertension. Fairly controlled 6. Hypothyroidism, on synthroid 8. Generalized anxiety disorder. 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 Treat [SAFETY SUPERVISOR Evaluation and Treatment] [CONS] Routine - Patient Instructions Diet: NPO Activity: As Tolerated - Discharge Plan Home Medications: Home Meds Albuterol/Ipratropium [Combivent Respimat] 1 puff IH QID PRN 06/07/15 [History] Brinzolamide [Azopt 1% Ophth Susp] 1 drop EYEBOTH BID 06/07/15 [History] Diazepam 5 mg PO BEDTIME 06/07/15 [History] Latanoprost 1 drop EYEBOTH BEDTIME 06/07/15 [History] Levothyroxine 200 mcg PO DAILY 06/07/15 [History] OXcarbazepine [Oxcarbazepine] 600 mg PO BID 06/07/15 [History] QUEtiapine Fumarate [Quetiapine Fumarate] 200 mg PO BEDTIME 06/07/15 [History] Simvastatin 80 mg PO BEDTIME 06/07/15 [History] Trifluoperazine 5 mg PO BEDTIME 06/07/15 [History] Pyridostigmine [place] 90 mg PO TID 12/04/16 [History] Budesonide [Pulmicort] 0.5 mg NEB BIDRT 12/05/16 [History] Formoterol [Perforomist] 20 mcg NEB BIDRT 12/05/16 [History] Citalopram Hydrobromide [Celexa] 10 mg PO BEDTIME 12/14/16 [History] Loratadine [Claritin] 5 mg PO DAILY PRN 12/14/16 [History] Multivitamin [Daily Multiple Vitamin] 1 tab PO DAILY 12/14/16 [History] amLODIPine [Norvasc] 10 mg PO DAILY 12/14/16 [History] Aspirin [Halfprin] 81 mg PO DAILY 12/17/16 [History] Brimonidine [Alphagan 0.2% Ophth Soln] 1 drop EYEBOTH BID 03/14/18 [History] Omeprazole 20 mg PO DAILY 03/21/18 [History] Prednisone [IJD: Prednisone] 10 mg PO DAILY 03/21/18 [History] Meropenem [Merrem] 500 mg IV Q8HR sdv 03/26/18 [Rx] - Discharge Summary/Plan Comment DC Time >30 min.: Yes (arranging transfer, accepting physician) - General Info Date of Service: 03/26/18 Admission Dx/Problem (Free Text: Admission Diagnosis/Problem Admission Diagnosis/Problem Pneumonia Subjective Update: Responding only with verbal "okay" Minimally able to move extremities, not opening eyes. Twitching of all extremities. Spontaneous breathing movements. - Review of Systems General: Denies: Fever Pulmonary: Denies: Shortness of Breath Cardiovascular: Denies: Chest Pain Neurological: Reports: Confusion - Patient Data Vitals - Most Recent: Last Vital Signs Temp 36.8 C 03/26/18 08:26 Pulse 95 03/26/18 08:26 Resp 20 03/26/18 08:26 BP 128/65 05/07/18 08:49 Pulse Ox 97 03/26/18 08:26 Weight - Most Recent: 73.028 kg I&O - Last 24 hours: Intake & Output 03/25/18 03/26/18 03/26/18 22:59 06:59 14:59 Intake Total 150 300 Balance 150 300 Med Orders - Current: Current Medications Acetaminophen (Tylenol) 650 mg PO Q4H PRN PRN Reason: Pain (Mild 1-3)/fever Last Admin: 03/25/18 21:04 Dose: 650 mg Al Hydroxide/Mg Hydroxide (Mag-Al Plus) 30 ml PO Q4H PRN PRN Reason: Nausea Amlodipine Besylate (Norvasc) 10 mg PO DAILY [facility] Last Admin: 03/26/18 08:49 Dose: 10 mg Aspirin (Halfprin) 81 mg PO DAILY@0800 [facility] Last Admin: 03/26/18 08:50 Dose: 81 mg Bisacodyl (Dulcolax) 5 mg PO DAILY PRN PRN Reason: Constipation Brimonidine Tartrate (Alphagan P 0.15% Ophth Soln) 0 ml EYEBOTH BID [facility] Last Admin: 03/26/18 08:51 Dose: 1 drop Budesonide (Pulmicort) 0.5 mg NEB BIDRT [facility] Last Admin: 03/26/18 07:11 Dose: 0.5 mg Calcium Carbonate/Glycine (Tums) 1,000 mg PO Q2HR PRN PRN Reason: Indigestion Citalopram Hydrobromide (Celexa) 10 mg PO BEDTIME [facility] Last Admin: 03/25/18 21:05 Dose: 10 mg Diazepam (Valium.) 5 mg PO BEDTIME [facility] Last Admin: 03/25/18 21:06 Dose: 5 mg Docusate Sodium (Colace) 100 mg PO BID PRN PRN Reason: Constipation Guaifenesin (Robitussin) 100 mg PO Q4H PRN PRN Reason: Cough Heparin Sodium (Porcine) (Heparin Sodium) 5,000 units SUBCUT Q12HR [facility] Last Admin: 03/26/18 08:50 Dose: 5,000 units Meropenem 500 mg/ Sodium (Chloride) 100 mls @ 200 mls/hr IV Q8HR [facility] Last Admin: 03/26/18 06:00 Dose: 200 mls/hr Latanoprost (Xalatan 0.005% Ophth Soln) 0 ml EYEBOTH BEDTIME [facility] Last Admin: 03/25/18 21:02 Dose: 1 drop Levothyroxine Sodium (Synthroid) 200 mcg PO DAILY [facility] Last Admin: 03/26/18 08:49 Dose: 200 mcg Loratadine (Claritin) 5 mg PO DAILY PRN PRN Reason: Allergies Methylprednisolone Sodium Succinate (Solu-Medrol) 80 mg IVPUSH ONETIME ONE Stop: 03/26/18 10:49 Multivitamins (Thera) 1 each PO DAILY [facility] Last Admin: 03/26/18 08:50 Dose: 1 each Omeprazole (Omeprazole) 20 mg PO ACBRK [facility] Last Admin: 03/26/18 06:01 Dose: 20 mg Ondansetron HCl (Zofran Odt) 4 mg PO Q4H PRN PRN Reason: nausea, able to take PO Last Admin: 03/25/18 16:05 Dose: 4 mg Ondansetron HCl (Zofran) 4 mg IVPUSH Q4H PRN PRN Reason: Nausea/Vomiting Oxcarbazepine (Trileptal) 600 mg PO BID [facility] Last Admin: 03/26/18 08:50 Dose: 600 mg Albuterol/Ipratropium [ Combivent Respimat] Pt's Own Med 0 each INH QID PRN PRN Reason: Shortness of Breath Formoterol [ Perforomist] 20 Mcg Pt's Own Med 20 each NEB BIDRT [facility] Last Admin: 03/25/18 17:58 Dose: 20 each Trifluoperazine 5 Mg (Pt's Own Med) 0 each PO BEDTIME [facility] Last Admin: 03/25/18 21:03 Dose: 1 each Pyridostigmine [place] 60 Mg Pt's Own Med 0 each PO 0600,1100,1700 [facility] Last Admin: 03/26/18 06:01 Dose: 1 each Prednisone (Prednisone) 10 mg PO WITHBREAKFAST [facility] Last Admin: 03/26/18 08:50 Dose: 10 mg Quetiapine Fumarate (Seroquel) 200 mg PO BEDTIME [facility] Last Admin: 03/25/18 21:05 Dose: 200 mg Simvastatin (Zocor) 80 mg PO BEDTIME [facility] Last Admin: 03/25/18 21:05 Dose: 80 mg Sodium Chloride (Saline Flush) 10 ml FLUSH ASDIRECTED PRN PRN Reason: Keep Vein Open Last Admin: 03/24/18 13:55 Dose: 10 ml Discontinued Medications Brinzolamide (Azopt 1% Ophth Susp) 0 ml EYEBOTH BID [facility] Last Admin: 03/23/18 08:54 Dose: 1 drop Pyridostigmine [place] 60 Mg Pt's Own Med 0 each PO TID [facility] Last Admin: 03/23/18 17:33 Dose: 1 each - Exam General: Reports: Alert. Denies: Oriented Lungs: Reports: Clear to Auscultation, Normal Respiratory Effort Cardiovascular: Reports: Regular Rate, Regular Rhythm GI/Abdominal Exam: Normal Bowel Sounds, No Distention, No Abnormal Bruit Extremities: No Pedal Edema
[2018-03-26 10:59] LABS: PCO2 ARTERIAL 114 mmHg (35-45)
[2018-03-26] MEDS ORDERED: Albuterol/Ipratropium 3.0-0.5 MG/3 ML Neb Soln NEB ONE (11:00)
[2018-03-26 11:15] LABS: CHLORIDE,CL 87 mmol/L (101-111); SODIUM,NA 135 mmol/L (135-145)
== END 2018-03-26 14:41 | DRG 177 ==
LOC: DL.MS 13:36 → UNDOADMIN 13:36 → DL.MS 15:35
PROVIDERS: ADMIT Student in an Organized Health Care Education/Training Program; ATTEND Student in an Organized Health Care Education/Training Program
PROC: 5A09357 Assistance with Respiratory Ventilation, Less than 24 Consecutive Hours, Continuous Positive Airway Pressure (ICD-10-PCS; principal; 2018-03-26)
DX: J15.6 Pneumonia due to other Gram-negative bacteria (principal); G70.01 Myasthenia gravis with (acute) exacerbation; J96.00 Acute respiratory failure, unspecified whether with hypoxia or hypercapnia; J44.0 Chronic obstructive pulmonary disease with (acute) lower respiratory infection; J96.11 Chronic respiratory failure with hypoxia; J15.1 Pneumonia due to Pseudomonas; F31.9 Bipolar disorder, unspecified; I10 Essential (primary) hypertension; E03.9 Hypothyroidism, unspecified; F41.1 Generalized anxiety disorder; Z99.81 Dependence on supplemental oxygen; R53.1 Weakness; E78.00 Pure hypercholesterolemia, unspecified; K21.9 Gastro-esophageal reflux disease without esophagitis; R35.0 Frequency of micturition; M19.90 Unspecified osteoarthritis, unspecified site; H40.9 Unspecified glaucoma; Z88.0 Allergy status to penicillin; Z88.8 Allergy status to other drugs, medicaments and biological substances; Z79.82 Long term (current) use of aspirin; Z79.52 Long term (current) use of systemic steroids; Z79.899 Other long term (current) drug therapy; Z87.891 Personal history of nicotine dependence
CPT/HCPCS: 36415; 36600; 80048; 82803; 85025; 94010; 94640; 97110-GP; 97116-GP; 97162-GP; 97166-GO; A9270-GY; J1644; J2185; J2920; J7050